=== PATIENT | male | born 1960 | race Caucasian/White ===

== ENCOUNTER 2025-03-01 15:07 | Outpatient (CLI) | payer MEDICARE, BC ==
[~2025-03-01] VITALS: Ht 170.2 cm; Wt 89.8 kg
[2025-03-01 16:15] VITALS: PULSE 75; RESP 16; O2SAT 98
[2025-03-01] MEDS: albuterol 2.5 MG/3 ML nebule NEB ONE (16:27)
[2025-03-01 16:49] VITALS: PULSE 91; RESP 16
== END 2025-03-01 23:59 | disposition home or self-care (01) ==
LOC: RT 15:07
PROVIDERS: ATTEND Family Medicine
DX: R06.02 Shortness of breath (principal)
CPT/HCPCS: 94060; 94760